=== PATIENT | male | born 1980 | race African-American/Black ===

== ENCOUNTER 2020-02-07 13:51 | Emergency (ER) | payer SELFPAY ==
[~2020-02-07] VITALS: Ht 180.3 cm; Wt 95.3 kg
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
--- NOTE | 2020-02-07 14:27 | Emergency Room Report ---
History of Present Illness General Chief Complaint: Behavioral Complaint Source: Patient Present Illness HPI 39-year-old male with no known past medical history brought in by paramedics due to agitation and delirium and behavioral complaint. 15 mg of Versed given in route. Patient stable upon arrival. At this time patient is a poor historian and will reassess when patient wakes up. Allergies: Coded Allergies: No Known Allergies (Unverified , 02/07/20) COVID-19 Screening COVID-19 risk:Contact w/high r: No Has patient experienced hanson: No COVID-19 Testing performed JAVA DEVELOPER CONSULTANT: No Patient History Past Medical History: see triage record Past Surgical History: unable to obtain Family History: unable to obtain Reviewed Nursing Documentation: PMH: Agreed; PSxH: Agreed Nursing Documentation-PMH Past Medical History: No History, Except For History Of Psychiatric Problem: Yes Review of Systems All Other Systems: negative except mentioned in HPI Physical Exam Vital Signs Date Time Temp Pulse Resp B/P (MAP) Pulse Ox O2 Delivery O2 Flow Rate FiO2 02/07/20 13:43 98.2 110 20 146/100 (115) 100 Room Air Sp02 EP Interpretation: reviewed, abnormal - Tachycardic Head: atraumatic Eyes: PERRL ENT: hearing intact Respiratory: effort normal, no wheezing, chest symmetrical Cardiovascular: regular rate, rhythm, no edema Gastrointestinal: no mass Neurologic: oriented x3, sensory intact, normal speech Skin: no rash Lymphatic: normal inspection Medical Decision Making PA Attestation All my diagnosis and treatment plans were reviewed ad discussed with my supervising physician Dr. Lucas Diagnostic Impression: Primary Impression: Benzodiazepine abuse Additional Impression: Methamphetamine abuse ER Course 39-year-old male with no known past medical history brought in by paramedics due to agitation and delirium and behavioral complaint. 15 mg of Versed given in route. Patient stable upon arrival. At this time patient is a poor historian and will reassess when patient wakes up. Ddx considered but are not limited to: generalized anxiety disorder, panic attack, depression with psycotic featurs, bipolar disorder, drug overdose Vital signs: are WNL, pt. is afebrile H&PE are most consistent with: Amphetamine abuse, benzodiazepine abuse, ORDERS: Psychiatric order set ED INTERVENTIONS: NS bolus DISCHARGE: At this time pt. is stable for d/c to home. Will provide printed patient care instructions, and any necessary prescriptions. Care plan and follow up instructions have been discussed with the patient prior to discharge. EKG Diagnostic Results Rate: normal Rhythm: NSR ST Segments: no acute changes Other Impression No acute ST changes ASA given to the pt in ED: No Chest X-Ray Diagnostic Results Chest X-Ray Diagnostic Results : Chest X-Ray Ordered: Yes # of Views/Limited/Complete: 1 View Indication: Other EP Interpretation: Yes Interpretation: no consolidation, no effusion, no pneumothorax, no acute cardiopulmonary disease Impression: No acute disease Electronically Signed by: Segun Baltazar PA-C Last Vital Signs Date Time Temp Pulse Resp B/P (MAP) Pulse Ox O2 Delivery O2 Flow Rate FiO2 02/07/20 13:43 98.2 110 20 146/100 (115) 100 Room Air Disposition: HOME, SELF-CARE Condition: Stable Referrals: NOT CHOSEN IPA/,REFERRING (PCP) Segun Morales Feb 07, 2020 14:27
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
[2020-02-07 14:32] LABS: BASOPHILS % (AUTO) 1.1 % (0.0-2.0); EOSINOPHILS % (AUTO) 0.5 % (0.0-3.0); HEMATOCRIT 39.2 % (42.0-52.0); HEMOGLOBIN 13.3 G/DL (14.2-18.0); LYMPHOCYTES % (AUTO) 9.6 % (20.0-45.0); MEAN CORPUSCULAR VOLUME 75 FL (80-99); MONOCYTES % (AUTO) 9.3 % (1.0-10.0); NEUTROPHILS % (AUTO) 79.5 % (45.0-75.0); PLATELET COUNT 186 K/UL (150-450); RED BLOOD COUNT 5.19 M/UL (4.70-6.10); RED CELL DISTRIBUTION WIDTH 13.4 % (11.6-14.8); WHITE BLOOD COUNT 8.4 K/UL (4.8-10.8)
[2020-02-07 14:32] LABS: APPEARANCE,URINE CLEAR; BILIRUBIN, URINE NEGATIVE (NEGATIVE); GLUCOSE, URINE (UA) NEGATIVE (NEGATIVE); KETONES,URINE 3+ (NEGATIVE); LEUKOCYTE ESTERASE ,URINE 1+ (NEGATIVE); NITRITE,URINE NEGATIVE (NEGATIVE); PH,URINE 5 (4.5-8.0); PROTEIN,URINE 2+ (NEGATIVE); UROBILINOGEN,URINE 1 MG/DL (0.0-1.0)
[2020-02-07 14:39] LABS: COLOR,URINE YELLOW
[2020-02-07 14:56] LABS: ANION GAP 9 mmol/L (5-15); BLOOD UREA NITROGEN 15 mg/dL (7-18); CALCIUM 8.3 MG/DL (8.5-10.1); CARBON DIOXIDE 26 MMOL/L (21-32); CHLORIDE 105 MMOL/L (98-107); CREATININE 1.1 MG/DL (0.55-1.30); SODIUM 140 MMOL/L (136-145)
[2020-02-07 15:06] LABS: ALANINE AMINOTRANSFERASE 29 U/L (12-78); ALBUMIN 3.6 G/DL (3.4-5.0); ALKALINE PHOSPHATASE 76 U/L (46-116); ASPARTATE AMINO TRANSFERASE 50 U/L (15-37); BILIRUBIN,TOTAL 1.3 MG/DL (0.2-1.0)
[2020-02-07 15:09] VITALS: BP 146/100
[2020-02-07 15:12] LABS: BILIRUBIN,DIRECT 0.3 MG/DL (0.0-0.3)
[2020-02-07] MEDS ORDERED: NS w/KCl 20mEq 1000ml 1,000 ML IV SCH (16:45)
[2020-02-07 17:16] VITALS: BP 136/89
--- NOTE | 2020-02-07 17:16 | NUR ---
ED Nurse Note:pt. is still asleep and hard to wake up
--- NOTE | 2020-02-07 19:15 | NUR ---
ED Nurse Note: Report received from BRIANNA KLINE. Patient asleep on bed. No changes in behavior noted
--- NOTE | 2020-02-07 20:06 | NUR ---
ED Nurse Note: Drinks provided to the patient
[2020-02-07 21:00] VITALS: BP 131/84
--- NOTE | 2020-02-07 21:00 | NUR ---
ER DISCHARGE NOTE: Patient is cleared to be discharged per ERMD, pt is aox4, on room air, with stable vital signs. pt was given dc and prescription instructions, pt was able to verbalize understanding, pt id band and iv site removed without complications. pt is able to ambulate with steady gait. pt took all belongings.
== END 2020-02-07 21:00 | disposition home or self-care (01) ==
LOC: EDBD 13:51 → EMR 14:02
DX: F15.10 Other stimulant abuse, uncomplicated (principal); F19.10 Other psychoactive substance abuse, uncomplicated; R00.0 Tachycardia, unspecified
CPT/HCPCS: 36415; 71045; 80053; 80307; 81003; 82248; 84484; 85025; 93005; 96361; 96365; 96366; 99284; G0480